=== PATIENT | female | born 1970 | race Caucasian/White ===

== ENCOUNTER 2016-08-06 10:40 | Emergency (ER) | payer BC, OTHER ==
[~2016-08-06] VITALS: Wt 67.0 kg
[2016-08-06] MEDS ORDERED: HYDROCODONE/APAP (5/325) TAB PO ONE (11:30)
--- NOTE | 2016-08-06 12:55 | RADRPT ---
PROCEDURE: Left knee series. CLINICAL INDICATION: Left knee pain after trauma TECHNIQUE: Three views of the left knee. COMPARISON: None available FINDINGS: There is normal mineralization and alignment of the left knee. No acute fracture or dislocation is seen. Joint spaces are well maintained. There is no evidence of osteophyte formation or erosion. No definite joint effusion is seen. The soft tissues are within normal limits. IMPRESSION: 1. Unremarkable left knee x-ray series. RPTAT: KK .Kris Monteiro MD, MD Date Time Electronically viewed and signed by .Kris Monteiro MD, on 08/06/2016 12:55 .B/
[2016-08-06] MEDS ORDERED: HYDR-906 PO (13:17)
[2016-08-06] MEDS ORDERED: IBUP-1542 PO (13:17)
--- NOTE | 2016-08-06 13:38 | ERD ---
ER Documentation Chief Complaint Date/Time DATE: 08/06/16 TIME: 13:36 Chief Complaint left knee pain while playing tennis possibly dislocated. no obvious deform HPI This 38-year-old female twisted her left knee playing tennis today. She has pain. She feels like the knee is unstable. She denies any restricted range of motion weakness and has guarding. She denies any bleeding, redness or laceration. She denies any calf swelling swelling or shortness of breath. ROS All systems reviewed and are negative except as per history of present illness. Medications Home Meds Active Scripts Ibuprofen* (Motrin*) 600 Mg Tab, 600 MG PO Q6, #30 TAB Prov:TAMMY MENESES MD 08/06/16 Hydrocodone/Acetaminophen (Bend 5-325 Tablet) 1 Each Tablet, 1 TAB PO Q6H Y for PAIN, #15 TAB Prov:TAMMY MENESES MD 08/06/16 Allergies Allergies: Coded Allergies: No Known Allergy (Unverified , 08/06/16) PMhx/Soc Medical and Surgical Hx: pt denies Medical Hx, pt denies Surgical Hx Hx Alcohol Use: No Hx Substance Use: No Hx Tobacco Use: No Smoking Status: Never smoker Physical Exam Vitals Vital Signs Date Time Temp Pulse Resp B/P Pulse Ox O2 Delivery O2 Flow Rate FiO2 08/06/16 10:44 98.8 64 21 124/91 99 Physical Exam Const: [] Alert, [id number] Head: Atraumatic Eyes: Normal Conjunctiva ENT: Normal External Ears, Nose and Mouth. Neck: Full range of motion..~ No meningismus. Resp: Clear to auscultation bilaterally Cardio: Regular rate and rhythm, no murmurs Abd: Soft, non tender, non distended. Normal bowel sounds Skin: No petechiae or rashes Back: No midline or flank tenderness Ext: No cyanosis, or edema. There is some tenderness and pain primarily in the medial knee joint distal femur. There is no significant effusion, difficult to perform Eden's test due to guarding. There is no calf swelling or Homans sign. Neur: Awake and alert Psych: Normal Mood and Affect Results 24 hrs Current Medications Medications (Trade) Dose Ordered Sig/Marika Route PRN Reason Start Time Stop Time Status Last Admin Dose Admin Acetaminophen/ Hydrocodone Bitart (Bend (5/325)) 1 tab ONCE ONCE PO 08/06/16 11:30 08/06/16 11:31 DC Procedures/MDM X-ray left knee with patella 4V Interpreted by me: Bones: [No fracture] Joints: [No dislocation] Foreign body: [None] impression-left knee x-ray Patient was given Bend 5 mg by mouth and placed in left knee immobilizer and given crutches with crutch training. Patient has left knee sprain with possible ligamentous injury without signs of bacterial infection, DVT, neurovascular compromise or deficit. She will treated with Bend and ibuprofen instructions for ice instructions to follow-up with orthopedist in the next week. She should return for fevers, redness, new worsening symptoms. Departure Diagnosis: Primary Impression: Knee injury Encounter type: initial encounter Laterality: left Qualified Code: S89.92XA - Knee injury, left, initial encounter Condition: Stable Patient Instructions: Knee Sprain Referrals: GUILLAUME GRECO MD, HRAIR E MD [facility] Hours: Thu-Thu 9:00 AM - 5:00 PM Additional Instructions: X-ray normal. Exam suggests possible ligament injury. See orthopedics for further evaluation within the next week. May need authorization from primary doctor for orthopedist visit. Do not take Naprosyn with ibuprofen take prescriptions as prescribed. TAMMY MENESES MD Aug 06, 2016 13:38
[2016-08-06 13:40] VITALS: BP 118/69; PULSE 69; RESP 18
== END 2016-08-06 13:47 | disposition home or self-care (01) ==
LOC: FTE 10:40 → MERGE 10:40 → FTE 13:47
DX: S89.92XA Unspecified injury of left lower leg, initial encounter (principal); X50.9XXA Other and unspecified overexertion or strenuous movements or postures, initial encounter; Y92.9 Unspecified place or not applicable
CPT/HCPCS: 73564